=== PATIENT | female | born 1990 | race Caucasian/White ===

== ENCOUNTER 2022-04-21 15:04 | Emergency (ER) | payer SELFPAY ==
[2022-04-21] MEDS ORDERED: predniSONE 20 MG TAB ONE (16:18)
== END 2022-04-21 16:20 | disposition home or self-care (01) ==
LOC: NAV ERS 15:04
DX: J20.9 Acute bronchitis, unspecified (principal); B34.9 Viral infection, unspecified
CPT/HCPCS: 71045; J7512